=== PATIENT | female | born 1960 | race Caucasian/White ===

== ENCOUNTER 2020-01-19 11:01 | Outpatient (CLI) | payer MEDICARE, MEDICAID, SELFPAY ==
[2020-01-19 12:27] LABS: Anion Gap 16.1 (5-19); Blood Urea Nitrogen 17 mg/dL (6-20); Calcium 10.4 mg/dL (8.5-10.5); Carbon Dioxide 28 mmol/L (22-29); Chloride 101 mmol/L (98-107); Glomerular Filtration Rate 56.9 mL/min (90-130); Glucose 118 mg/dL (65-115); Osmolality Calculated 287 mOsm/kg (285-295); Potassium 5.1 mmol/L (3.5-5.1); Sodium 140 mmol/L (136-145)
== END 2020-01-19 11:02 | disposition home or self-care (01) ==
LOC: LAB 11:05
PROVIDERS: Family Provider Nurse Practitioner; PCP Nurse Practitioner; Visit Provider Nurse Practitioner
DX: E10.649 Type 1 diabetes mellitus with hypoglycemia without coma (principal); E06.3 Autoimmune thyroiditis
CPT/HCPCS: 80048

== ENCOUNTER 2021-12-23 06:00 | Outpatient (RCR) | payer MEDICARE, MEDICAID, SELFPAY | END 2022-01-04 23:59 | disposition home or self-care (01) | LOC: MOT 06:00 | PROVIDERS: PCP Nurse Practitioner; Referring Provider Orthopaedic Surgery; Visit Provider Orthopaedic Surgery | DX: S62.102D Fracture of unspecified carpal bone, left wrist, subsequent encounter for fracture with routine healing (principal) | CPT/HCPCS: 97110; 97140; 97166 ==

== ENCOUNTER 2022-01-05 06:00 | Outpatient (RCR) | payer MEDICARE, MEDICAID, SELFPAY | END 2022-02-04 23:59 | disposition home or self-care (01) | LOC: MOT 06:00 | PROVIDERS: PCP Nurse Practitioner; Referring Provider Orthopaedic Surgery; Visit Provider Orthopaedic Surgery | DX: S62.102D Fracture of unspecified carpal bone, left wrist, subsequent encounter for fracture with routine healing (principal); X58.XXXD Exposure to other specified factors, subsequent encounter | CPT/HCPCS: 97018; 97110; 97140 ==

== ENCOUNTER 2022-02-05 06:00 | Outpatient (RCR) | payer MEDICARE, MEDICAID, SELFPAY | END 2022-02-09 23:59 | disposition home or self-care (01) | LOC: MOT 06:00 | PROVIDERS: PCP Nurse Practitioner; Referring Provider Orthopaedic Surgery; Visit Provider Orthopaedic Surgery | DX: S62.102D Fracture of unspecified carpal bone, left wrist, subsequent encounter for fracture with routine healing (principal); X58.XXXD Exposure to other specified factors, subsequent encounter | CPT/HCPCS: 97110; 97140 ==

== ENCOUNTER 2022-09-15 06:00 | Outpatient (RCR) | payer MEDICARE, MEDICAID, SELFPAY | END 2022-10-06 23:59 | disposition home or self-care (01) | LOC: MOT 06:00 | PROVIDERS: Visit Provider Orthopaedic Surgery | DX: M25.532 Pain in left wrist (principal) | CPT/HCPCS: 97110; 97140; 97166 ==

== ENCOUNTER 2022-10-07 06:00 | Outpatient (RCR) | payer MEDICARE, MEDICAID, SELFPAY | END 2022-10-20 23:59 | disposition home or self-care (01) | LOC: MOT 06:00 | PROVIDERS: Visit Provider Orthopaedic Surgery | DX: M77.8 Other enthesopathies, not elsewhere classified (principal) | CPT/HCPCS: 97110; 97140 ==

== ENCOUNTER 2025-07-02 09:12 | Outpatient (CLI) | payer MEDICAID, MEDICARE, SELFPAY ==
--- NOTE | 2025-07-02 09:17 | XRR_ITS ---
PROCEDURE INFORMATION: Exam: XR Right Finger(s) Exam date and time: 07/02/2025 9:26 AM Age: 64 years old Clinical indication: Pain; Finger(s); Right; Additional info: Right middle finger pip pain, 6 months; No injury TECHNIQUE: Imaging protocol: Radiologic exam of the right fingers. Views: Minimum 2 views. COMPARISON: No relevant prior studies available. FINDINGS: Bones/joints: Marked degenerative changes of the 3rd D IP joint. No erosive findings. No lytic or sclerotic bone lesion. Soft tissues: Normal. XR/XR finger RT min 2V [id number] IMPRESSION: Marked degenerative changes of the D IP joint.
== END 2025-07-02 09:13 | disposition home or self-care (01) ==
LOC: RAD 09:15
PROVIDERS: PCP Family Medicine; Visit Provider Family Medicine
DX: M79.644 Pain in right finger(s) (principal); M19.041 Primary osteoarthritis, right hand
CPT/HCPCS: 73140

== ENCOUNTER → 2025-07-09 09:21 | Outpatient (BNVA) | payer MEDICARE, MEDICAID, SELFPAY | PROVIDERS: PCP Family Medicine; Visit Provider Student in an Organized Health Care Education/Training Program | DX: M79.644 Pain in right finger(s) (principal); M15.1 Heberden's nodes (with arthropathy) | CPT/HCPCS: 73130; 99204 ==

== ENCOUNTER 2025-08-08 07:27 | Day surgery (SDC) | payer MEDICARE, MEDICAID, SELFPAY ==
[2025-08-08] VITALS (8 sets, daily range): BP systolic 114–156; BP diastolic 50–84; PULSE 63–77; RESP 12–16; TEMP 36.1–36.4; O2SAT 93–99; BMI 36.4
--- NOTE | 2025-08-08 | XR_ITS ---
WS: [id number] XR finger RT min 2V [id number] REASON FOR EXAM: NATALIYA PICS FINDINGS: Screw arthrodesis of the DIP joint of the middle finger with osteotomy of previous large osteophytes at the base of the distal phalange. XR/XR finger RT min 2V [id number] IMPRESSION: Arthrodesis and osteotomy of the middle finger as above.
--- NOTE | 2025-08-08 07:46 | ANES.PREANE2 ---
Pre-Anesthetic Assessment Height/Weight: Height 5 ft 1 in Preop Diagnosis: Arthritis of right middle finger joint Operation Date: 08/08/25 09:20 Proposed Procedures p RIGHT Middle Finger Distal Interphalangeal Joint Arthrodesis(Right) - Jeremias Robert DO Was Beta Leona taken within 24 hours: N/A Was Clonidine taken within 24 hours: N/A Social No alcohol and No tobacco Exam alert, oriented x 3, clear to auscultation bilaterally and regular rate & rhythm Airway Submandibular: within normal limits Cervical ROM: within normal limits Mallampati: Class III Dentition: full Anesthetic Plan ASA status: 3 Anesthesia: MAC Other: No prior issues with anesthesia NPO since yesterday evening History of hypertension on losartan Type I diabetic, on chronic insulin. Preop BS 84 GERD, controlled with omeprazole Patient is blind in right eye Plan for MAC anesthesia with local via surgeon Medications/Allergies Home Medications ?Medication ?Instructions ?Recorded ?Confirmed ?Last Taken ?Type dorzolamide 2 % eye drops 1 drp ophthalmic (eye) BID 07/02/25 08/07/25 08/07/25 History insulin aspart U-100 100 unit/mL 20 unit (0.2 mL) SUBCUT TID #10 mL 07/02/25 08/07/25 08/07/25 Rx subcutaneous solution (Novolog U-100 Insulin aspart) levothyroxine 125 mcg tablet 125 mcg PO DAILY 07/02/25 08/07/25 08/07/25 History (Synthroid) losartan 100 mg tablet 100 mg PO DAILY 07/02/25 08/07/25 08/07/25 History omeprazole 20 mg capsule,delayed 20 mg PO DAILY 07/02/25 08/07/25 08/08/25 History release rosuvastatin 20 mg tablet 20 mg PO DAILY 07/02/25 08/07/25 08/07/25 History Allergies Allergy/AdvReac Type Severity Reaction Status Date / Time piroxicam (From Feldene) Allergy Severe Increased Verified 08/08/25 07:35 Pain Pork Insulin Allergy Severe Severe Uncoded 08/08/25 07:35 High Blood Sugar [facility] Anesthesia Medical History (Updated 07/13/25 @ 22:00 by Jeremias Robert DO) 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 Hyperlipidemia, mixed HTN (hypertension) with goal to be determined Hypothyroid Gastroesophageal reflux disease without esophagitis Diabetes type 1 sees Bailey yoo; has insulin pump, omnipod, dexom Surgical History Hx of colonoscopy done at [facility], signed release to get records Hx of removal of cyst pilonidal Hx of left cataract extraction Hx of eye surgery lasers, scar tissue; History of surgery on left wrist ORIF Family History Father Cancer throat Hypertension Agent orange exposure Mother Stomach cancer Brother Thyroid cancer Social History Smoking and tobacco/nicotine status: unknown if used tobacco/nicotine Second hand smoke exposure: Yes Alcohol intake: never Substance/Drug Use: never Household members: other Details: lives with boyfriend Marital status: / Number of children: 0 Highest education level completed: Bachelor's Degree Current occupational status: disabled Previous occupational history: on disability due to blindness/diabetes
--- NOTE | 2025-08-08 07:59 | W.PM.OPSUD ---
Surgery/Procedure H&P Update DATE OF PROCEDURE: August 08, 2025 DATE H&P PERFORMED: 07/09/25 H&P UPDATE INFORMATION: I have reviewed H&P completed within last 30 days, I have examined patient prior to procedure and No changes to prior documentation PREOP DIAGNOSIS: Right middle finger DIP arthritis and deformity PRIMARY INDICATION FOR PROCEDURE: Right middle finger DIP arthritis and deformity PLANNED PROCEDURE: Operation Date: 08/08/25 09:20 Proposed Procedures p RIGHT Middle Finger Distal Interphalangeal Joint Arthrodesis(Right) - Jeremias Robert DO
[2025-08-08 08:17] LABS: Hematocrit 42.9 % (36-47); Hemoglobin 13.80 g/dL (11.27-16.99); Mean Corpuscular HGB Conc 32.2 g/dL (30-55); Mean Corpuscular Hemoglobin 28.6 pg (27-33); Mean Corpuscular Volume 89.0 fl (85-98); Nucleated Red Blood Cells % 0 %; Platelet Count 216 10^3/cmm (157-399); Red Blood Count 4.82 10^6/uL (3.85-5.65); White Blood Count 4.75 10^3/uL (3.29-11.43)
[2025-08-08] MEDS: acetaminophen 1,000 MG/100 ML PIGGYBACK 400 MG IV (08:18)
[2025-08-08 08:37] LABS: Anion Gap 13.9 (5-19); Blood Urea Nitrogen 22 mg/dL (8-23); Calcium 9.8 mg/dL (8.5-10.5); Carbon Dioxide 27 mmol/L (22-29); Chloride 106 mmol/L (98-107); Creatinine Clr Calc Pharmacy 57.1505; Glucose 96 mg/dL (65-115); Osmolality Calculated 299 mOsm/kg (285-295); Potassium 3.9 mmol/L (3.5-5.1); Sodium 143 mmol/L (136-145)
[2025-08-08] MEDS: ceFAZolin 2,000 MG in sodium chloride 0.9% (plus) 50 ML 100 MG IV (08:38)
[2025-08-08] MEDS: ROPivacaine 0.5% SDV 30 mL 150 MG INJECTION (09:17)
--- NOTE | 2025-08-08 10:13 | W.PM.BPON ---
Date of Procedure: 08/08/2025 Surgeon: Jeremias Robert DO Fire Protection Specialist(s): None Procedure(s) performed: Right middle finger distal interphalangeal joint arthrodesis Findings of the procedure(s): Patient underwent right middle finger distal interphalangeal joint arthrodesis without issues or complications splint placed and patient taken recovery in stable condition Estimated blood loss: 5 mL Specimen(s) removed: Osteophytes removed off of the DIP joint in preparation for arthrodesis Post-operative diagnosis: Right middle finger distal interphalangeal joint arthritis
--- NOTE | 2025-08-08 10:14 | P.OP_ITS ---
Operative Report Date of procedure: August 08, 2025 Pre-op diagnosis: Right middle finger DIP joint arthritis Post-op diagnosis: Same Post-op findings: See operative report narrative Procedure done: Right middle finger distal interphalangeal joint arthrodesis Implants: Arthrex headless compression screw 2.5 mm x 28 mm Abel DBM putty Surgeon: Jeremias Robert DO Anesthesia: MAC and Local Estimated blood loss: 5 mL 48 min IV fluids: 600 mL Complications: None Findings: See operative report Condition: stable Disposition: same day Brief History: Patient at this point in time 65-year-old female with severe right middle finger DIP joint arthritis. We talked about her treatment options in detail. She like to have this fixed permanently as well as no pain and limitation of the prominence at this point in time we talked about in detail and through shared decision making patient like to proceed with surgical intervention for a right middle finger distal interphalangeal joint arthrodesis she understands the ins and outs procedure risk benefits complication of her surgical and nonsurgical t reatment options. Understanding risk of surgery she elects proceed with surgical invention. All questions answered at this time. Procedure: Patient seen evaluated preoperative holding area. Consent was reviewed and signed with patient correct extremity/digit was then marked. Patient was seen eval by anesthesia once cleared for surgery patient was taken back to the operative suite. [facility] in the transport to the OR suite. Patient then subsequently underwent anesthesia per the anesthesia apartment once proper anesthetized a armboard was applied to the right upper extremity nonsterile tourniquet was applied to the right upper arm. At this point in time all bony parents well-padded patient appropriate care to bed. This point in time and then subsequently plan a timeout performed. Patient received appropriate preoperative robotics. Finger tourniquet was applied to the right middle finger At this point in time I subsequently took many fluoroscopic imaging to confirm patient's middle finger severe DIP arthritis as well as deformity at this point in time I made a standard H approach incision to have full-thickness flaps and direct visualization for joint preparation. I subsequently dissected directly over this extensor mechanism. And then subsequently in parallel fashion along the radial and ulnar sides of the tendon began to work and open the DIP joint and perform a capsulotomy. I then started using a synovial rongeur and removed all dorsal osteophytes some unfortunately were embedded within the extensor tendon mechanism which we had to detach and prepare for later repair. I then subsequently released the collaterals for visualization Hyperflex the joint and then subsequently utilized a curette and rongeur to completely debride and prepped the joint I then utilized a K wire to fenestrate the joint. At this point in time I then subsequently and the finger and the flexion drove the A rthrex guide pin from antegrade fashion from the distal phalanx out the fingertip and then at that standpoint I utilized thorough irrigation of the entire finger and then at this standpoint I brought in fluoroscopic imaging and reduced the finger and had excellent alignment I then did open Abel DBM putty this was then filled into the joint to casting machine operator helper in for joint fusion. This was then held in reduction and then subsequently I advanced a K wire holding the DIP in extension into the middle phalanx. I did utilize a rasp over the dorsal aspect to make sure this was smooth and no prominence at all of any dorsal osteophytes were noted. At this point in time I then subsequently advanced a wire to satisfactory position took a measurement and subsequently drilled for a 2.5 mm headless compression screws selected a 2.5 mm x 28 mm headless compression screw with Arthrex. This was then subsequently advanced under direct fluoroscopic imaging maintaining my reduction of the DIP joint and had excellent compression and fixation this is advanced a satisfactory position and then subsequent moved to wire final x-rays were performed and satisfactory DIP joint arthrodesis of the right middle finger. At this point in time finger tourniquet was removed hemostasis satisfactory thorough irrigation performed I then subsequently utilized Monocryl suture to repair the extensor mechanism and capsule and then subsequently closed H incision with interrupted nylon suture this was then prepped with Xeroform 4 x 4's Abdulaziz wrap and splint applied to protect the DIP arthrodesis. Patient was then awakened from anesthesia and taken to recovery in stable condition. Disposition: Patient taken recovery in stable condition with appropriate discharge structures and pain medication postoperatively will follow-up in orthopedic office in 2 weeks. Patient family understand agree with current plan. Questions answered.
--- NOTE | 2025-08-08 10:20 | PM.PACU ---
PACU note Narrative: Patient is a 65-year-old female that just underwent right middle finger joint arthrodesis. Patient transferred to PACU in stable condition. Pain is well controlled. Dressing on hand is dry and in place. Exam limited due to splint and postop dressing. Patient's fingers are warm and well-perfused. Patient can wiggle finger. normal cap refill under 2 seconds. Patient has normal elbow range of motion. Unable to assess sensation due to residual localized anesthetic. Exam: awake Disposition: discharged
--- NOTE | 2025-08-08 11:16 | ANE.PACU2 ---
Inpatient post-anesthesia follow up: Airway intact: Yes Vital signs: Temperature 97 F Pulse Rate 70 Respiratory Rate 16 Blood Pressure 134/80 Pulse Oximetry 98 Oxygen Delivery Me thod Room Air Oxygen Flow Rate Fraction of Inspir ed Oxygen Hydration adequate: Yes Nausea and vomiting: No Pain level: 1 Mental status: Baseline
== END 2025-08-08 11:17 | disposition home or self-care (01) ==
PROVIDERS: Student in an Organized Health Care Education/Training Program; PCP Family Medicine; Visit Provider Student in an Organized Health Care Education/Training Program
PROC: (CPT 26860; principal; 2025-08-08 09:20)
DX: M19.041 Primary osteoarthritis, right hand (principal); I10 Essential (primary) hypertension; E10.9 Type 1 diabetes mellitus without complications; K21.9 Gastro-esophageal reflux disease without esophagitis; E78.5 Hyperlipidemia, unspecified; E03.9 Hypothyroidism, unspecified; Z96.41 Presence of insulin pump (external) (internal)
CPT/HCPCS: 26860; 36416; 73140; 76000; 80048; 82962; 85025; C1713; J0131; J0690; J1100; J1885; J2405; J2704; J2795; J3010; J7030; J9999

== ENCOUNTER → 2025-08-20 07:52 | Outpatient (BNVA) | payer MEDICARE, MEDICAID, SELFPAY | PROVIDERS: PCP Family Medicine; Visit Provider Physician Assistant | DX: Z98.890 Other specified postprocedural states (principal); Z46.89 Encounter for fitting and adjustment of other specified devices | CPT/HCPCS: 73130 ==

== ENCOUNTER 2025-08-20 08:52 | Outpatient (CLI) | payer MEDICARE, MEDICAID, SELFPAY | END 2025-08-20 08:53 | disposition home or self-care (01) | LOC: SOT 08:53 | PROVIDERS: PCP Family Medicine; Visit Provider Physician Assistant | DX: Z46.89 Encounter for fitting and adjustment of other specified devices (principal); M15.1 Heberden's nodes (with arthropathy) | CPT/HCPCS: 97760; 99024; L3925 ==

== ENCOUNTER 2025-08-27 13:35 | Outpatient (RCR) | payer MEDICARE, MEDICAID, SELFPAY | END 2025-09-06 23:59 | disposition home or self-care (01) | LOC: SOT 13:35 | PROVIDERS: Visit Provider Physician Assistant | DX: M15.1 Heberden's nodes (with arthropathy) (principal) | CPT/HCPCS: 97022; 97110; 97140; 97165; 97530 ==

== ENCOUNTER → 2025-09-03 08:26 | Outpatient (BNVA) | payer MEDICARE, MEDICAID, SELFPAY | PROVIDERS: PCP Family Medicine; Visit Provider Physician Assistant | DX: Z98.890 Other specified postprocedural states (principal) | CPT/HCPCS: 73130; 99024 ==

== ENCOUNTER 2025-09-07 05:00 | Outpatient (RCR) | payer MEDICARE, MEDICAID, SELFPAY | END 2025-10-06 23:59 | disposition home or self-care (01) | LOC: SOT 05:00 | PROVIDERS: PCP Family Medicine; Visit Provider Physician Assistant | DX: M15.1 Heberden's nodes (with arthropathy) (principal) | CPT/HCPCS: 97022; 97110; 97530 ==

== ENCOUNTER → 2025-09-17 08:42 | Outpatient (BNVA) | payer MEDICARE, MEDICAID, SELFPAY | PROVIDERS: PCP Family Medicine; Visit Provider Physician Assistant | DX: Z98.890 Other specified postprocedural states (principal) | CPT/HCPCS: 73130; 99024 ==

== ENCOUNTER → 2025-10-15 08:50 | Outpatient (BNVA) | payer MEDICARE, MEDICAID, SELFPAY | PROVIDERS: PCP Family Medicine; Visit Provider Physician Assistant | DX: Z98.890 Other specified postprocedural states (principal) | CPT/HCPCS: 73130; 99024 ==